=== PATIENT | female | born 1960 ===

== ENCOUNTER 2018-08-15 13:11 | Emergency (ER) | payer MEDICAID ==
[2018-08-15 13:27] VITALS: RESP 18
[2018-08-15 13:53] LABS: URINE BILIRUBIN NEGATIVE (NEGATIVE); URINE BLOOD 1+ (NEGATIVE); URINE CLARITY Clear (Clear); URINE COLOR Colorless (YELLOW); URINE GLUCOSE (UA) NORMAL (Normal); URINE LEUKOCYTE ESTERASE NEG Leu/uL (Negative); URINE PROTEIN NEGATIVE (NEGATIVE); URINE UROBILINOGEN NORMAL mg/dL (0.2-1.0)
--- NOTE | 2018-08-15 14:23 | C.PDOC ---
History Of Present Illness 58 y/o female with history of HTN, High Cholesterol and Hysterectomy presents to ED with c/o bilateral lower back pain 6/10 for 1 month worse with movement. Patient states she was diagnosed with microscopic hematuria, currently admits to urinary frequency. 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 Patient denies fever, chills, dysuria, nausea, vomiting or any other complaints at this time. Time Seen by Provider: 08/15/18 13:32 Chief Complaint (Nursing): Female Genitourinary History Per: Patient History/Exam Limitations: no limitations Onset/Duration Of Symptoms: Days Current Symptoms Are (Timing): Still Present Past Medical History Reviewed: Historical Data, Nursing Documentation, Vital Signs Vital Signs: Last Vital Signs Temp 98.4 F 08/15/18 13:20 Pulse 73 08/15/18 13:20 Resp 18 08/15/18 13:20 BP 133/83 08/15/18 13:20 Pulse Ox 99 08/15/18 13:20 - Medical History PMH: Depression, HTN, Hypercholesterolemia Surgical History: Cholecystectomy Family History: States: No Known Family Hx - Social History Hx Alcohol Use: No Hx Substance Use: No Review Of Systems Constitutional: Negative for: Fever, Chills Gastrointestinal: Negative for: Nausea, Vomiting, Abdominal Pain Genitourinary: Positive for: Frequency, Hematuria. Negative for: Dysuria Musculoskeletal: Positive for: Back Pain Physical Exam - Physical Exam Appears: Non-toxic, No Acute Distress Skin: Warm, Dry, No Rash Head: Atraumatic, Normacephalic Eye(s): bilateral: Normal Inspection Oral Mucosa: Moist Neck: Supple Cardiovascular: Rhythm Regular Respiratory: Normal Breath Sounds, No Rales, No Rhonchi, No Wheezing Gastrointestinal/Abdominal: Soft, No Tenderness, No Guarding, No Rebound Back: No CVA Tenderness, Other (Back pain increased with movement, discomfort noted) Extremity: Normal ROM, Capillary Refill (<2 seconds), No Deformity Neurological/Psych: Oriented x3, Normal Speech, Normal Motor, Normal Sensation ED Course And Treatment O2 Sat by Pulse Oximetry: 99 (RA) Pulse Ox Interpretation: Normal Medical Decision Making Medical Decision Making: UA showed blood in urine CT scan ordered to r/o kidney stones Disposition - Disposition Disposition: HOME/ ROUTINE Disposition Time: 16:12 Condition: STABLE Prescriptions: Ciprofloxacin [Cipro] 1 tab PO BID #14 tab Ibuprofen [Motrin] 600 mg PO TID #15 tab Instructions: Muscle and Bone Pain (DC), Acute Cystitis (DC) Forms: [facility] (Lao), Gen Discharge Inst Lao - POA Present On Arrival: None - Clinical Impression Clinical Impression: Musculoskeletal pain, Cystitis - Scribe Statement The provider has reviewed the documentation as recorded by the Rian Scott All medical record entries made by the Sharonibomar were at my direction and personally dictated by me. I have reviewed the chart and agree that the record accurately reflects my personal performance of the history, physical exam, medical decision making, and the department course for this patient. I have also personally directed, reviewed, and agree with the discharge instructions and disposition.
--- NOTE | 2018-08-15 15:37 | CT ---
Date of service: 08/15/2018 PROCEDURE: CT abdomen pelvis HISTORY: Abdominal pain COMPARISON: None. TECHNIQUE: Contiguous helical/transaxial sections of the abdomen pelvis performed in standard fashion without oral or intravenous contrast material. Additional 2D sagittal and coronal reformats generated. Radiation dose: Total exam DLP = 829.97 mGy-cm. This CT exam was performed using one or more of the following dose reduction techniques: Automated exposure control, adjustment of the mA and/or kV according to patient size, and/or use of iterative reconstruction technique. Level in FINDINGS: LOWER THORAX: Minor atelectasis/scarring changes seen in the left lung base including the lingular and middle lobe regions. No effusion or basilar pneumothorax. Heart size within range of normal. No significant pericardial effusion. LIVER: Liver exhibits normal size and attenuation pattern without mass collection or calcification. GALLBLADDER AND BILE DUCTS: Gallbladder is not visualized on this study. Clinical correlation with history recommended. PANCREAS: Pancreas appears markedly atrophic with what probably represents chronic calcifications in the pancreatic head and uncinate process region. The remaining pancreas is quite atrophic and fatty replaced. SPLEEN: Unremarkable. No splenomegaly. ADRENALS: No adrenal lesions. KIDNEYS AND URETERS: Kidneys demonstrate relatively symmetric size. No evidence of nephrolithiasis or hydronephrosis. BLADDER: Urinary bladder is incompletely distended which may in part account for thick-walled appearance. Correlation with urinalysis recommended to exclude cystitis. REPRODUCTIVE: Unremarkable as visualized. APPENDIX: The appendix is not seen with complete certainty on however no evidence of acute appendicitis BOWEL: Evaluation of the bowel is somewhat limited due to the lack of oral contrast material. The stomach is distended with food debris, air and a small amount of fluid. Visualized loops of small bowel exhibit normal contour and caliber. No evidence of acute mechanical small bowel obstruction. There is a relatively large amount of stool within the cecum ascending and transverse colon suggesting mild fecal retention/constipation. No definitive evidence of mural wall thickening. PERITONEUM: Unremarkable. No fluid collection. No free air. LYMPH NODES: Unremarkable. No enlarged lymph nodes. VASCULATURE: Minor calcified atherosclerotic/mural plaque abdominal aorta. No aortic aneurysm. BONES: Multilevel degenerative spondylosis of the lower thoracic and lumbar spine. OTHER FINDINGS: None. IMPRESSION: Findings consistent with constipation. The appendix and gallbladder not visualized. Clinical correlation recommended. Coarse calcifications within the pancreatic head and uncinate process suggesting sequela of chronic pancreatitis. The remaining pancreas is quite atrophic and fatty replaced. Mild urinary bladder wall thickening likely due to incomplete distention however correlation with urinalysis recommended to exclude cystitis. See above discussion for additional details and findings.
[2018-08-15 15:45] VITALS: BP 136/72; PULSE 78; TEMP 98
[2018-08-15 16:15] VITALS: O2SAT 99
== END 2018-08-15 16:32 | disposition home or self-care (01) ==
LOC: C.ER 13:11
DX: M79.18 Myalgia, other site (principal); N30.90 Cystitis, unspecified without hematuria

== ENCOUNTER 2018-11-10 16:16 | Emergency (ER) | payer MEDICAID ==
[2018-11-10 17:02] VITALS: BMI 27.2
[2018-11-10 17:05] VITALS: RESP 18; O2SAT 97
[2018-11-10] MEDS ORDERED: Aluminum Hydroxide/Magnesium Hydroxide Susp (30 mL) PO STA (17:41)
[2018-11-10] MEDS ORDERED: Aluminum Hydroxide/Magnesium Hydroxide Susp (30 mL) ONE (17:51)
--- NOTE | 2018-11-10 18:12 | C.PDOC ---
History Of Present Illness The patient is a 58 year old female who states she sustained a work injury in 2008; she states another patient fell onto her right shoulder and she has had "ligament problems" in that shoulder since then. Patient presents to the ED for evaluation of right shoulder pain. Pt states she sees pain management and is scheduled for an appointment on 11/16, but presents to the ED requesting pain medication. Describes pain as 8/10 and states it radiates into her hand. She denies any other sx at this time. Time Seen by Provider: 11/10/18 17:06 Chief Complaint (Nursing): Upper Extremity Problem/Injury History Per: Patient History/Exam Limitations: no limitations Onset/Duration Of Symptoms: Days Current Symptoms Are (Timing): Worse Quality: "Pain" Additional History Per: Patient Past Medical History Reviewed: Historical Data, Nursing Documentation, Vital Signs Vital Signs: Last Vital Signs Temp 98.1 F 11/10/18 17:02 Pulse 90 11/10/18 17:02 Resp 18 11/10/18 17:02 BP 148/90 11/10/18 17:02 Pulse Ox 97 11/10/18 17:02 - Medical History PMH: Depression, HTN, Hypercholesterolemia Surgical History: Appendectomy, Cholecystectomy Family History: States: Unknown Family Hx - Social History Hx Alcohol Use: No Hx Substance Use: No Review Of Systems Musculoskeletal: Positive for: Shoulder Pain (right) Neurological: Negative for: Weakness, Numbness Physical Exam - Physical Exam Appears: Non-toxic, No Acute Distress Skin: Normal Color, Warm, Dry Head: Atraumatic, Normacephalic Eye(s): bilateral: Normal Inspection Extremity: Normal ROM (right shoulder ), No Tenderness, Capillary Refill (less than 2 seconds ), No Swelling Neurological/Psych: Oriented x3, Normal Speech, Normal Cognition ED Course And Treatment O2 Sat by Pulse Oximetry: 97 (on RA) Pulse Ox Interpretation: Normal Medical Decision Making Medical Decision Making: Lidoderm patch, Maalox PO, Flexeril PO, and Motrin PO given. Patient advised to f/u with pain management as scheduled. Disposition - Disposition Disposition: HOME/ ROUTINE Disposition Time: 18:10 Condition: STABLE Prescriptions: Ibuprofen [Motrin] 600 mg PO TID #15 tab Forms: Gen Discharge Inst Thai, [employer] (Thai), Work Excuse - POA Present On Arrival: None - Clinical Impression Clinical Impression: Shoulder pain, right - Scribe Statement The provider has reviewed the documentation as recorded by the Scribe (Jeanne Khan) Provider Attestation: All medical record entries made by the Scribe were at my direction and personally dictated by me. I have reviewed the chart and agree that the record accurately reflects my personal performance of the history, physical exam, medical decision making, and the department course for this patient. I have also personally directed, reviewed, and agree with the discharge instructions and disposition.
[2018-11-10] MEDS ORDERED: Lidocaine 5% Patch TD STA (18:14)
[2018-11-10] MEDS ORDERED: Lidocaine 5% Patch TD ONE (18:15)
[2018-11-10 18:35] VITALS: BP 138/84; PULSE 62; TEMP 98.2
[2018-11-11] MEDS ORDERED: Lidocaine 5% Patch TD SCH (10:00)
== END 2018-11-10 18:22 | disposition home or self-care (01) ==
LOC: C.ER 16:16
DX: M25.511 Pain in right shoulder (principal)